=== PATIENT | male | born 1995 | race Caucasian/White ===

== ENCOUNTER 2019-04-06 11:23 | Emergency (ER) | payer MEDICAID ==
[~2019-04-06] VITALS: Ht 193 cm; Wt 64.5 kg
[2019-04-06 11:37] VITALS: BP 139/73; TEMP 98.1
[2019-04-06] MEDS ORDERED: ATARAX50 MG (11:55)
[2019-04-06] MEDS ORDERED: SEROQUEL 1100 MG/TAB PO (11:57)
[2019-04-06] MEDS ORDERED: COGENTIN 1MG1 MG/TAB PO (11:57)
[2019-04-06] MEDS ORDERED: [UNRECOGNIZED DRUG - OTHER] PO (11:59)
[2019-04-06] MEDS ORDERED: LACTULOSE SOL 10G PO (12:00)
[2019-04-06] MEDS ORDERED: SYNTHROID0.05 MG/TA PO (12:00)
[2019-04-06] MEDS ORDERED: SEROQUEL400 MG PO (12:01)
[2019-04-06] MEDS ORDERED: ZOLOFT 100MG100 MG PO (12:02)
[2019-04-06] MEDS ORDERED: NAPROSYN 2250 MG/TAB PO (12:02)
[2019-04-06] MEDS ORDERED: TAMIFLU 75MG75 MG PO (13:06)
[2019-04-06] MEDS ORDERED: ALBUTEROL0.83 MG/ML IH (13:06)
[2019-04-06 13:11] VITALS: PULSE 105
== END 2019-04-06 13:11 | disposition home or self-care (01) ==
LOC: COL.ER 11:23
DX: J09.X2 Influenza due to identified novel influenza A virus with other respiratory manifestations (principal); E03.9 Hypothyroidism, unspecified; F84.0 Autistic disorder